=== PATIENT | female | born 1940 | race Caucasian/White ===

== ENCOUNTER 2023-10-08 12:35 | Observation (INO) ==
[2023-10-08 13:22] LABS: ABS Eosinophils 0.1 10^3/uL (0.0-0.5); ABS Lymphocytes 0.6 10^3/uL (1.0-4.8); ABS Monocytes 0.4 10^3/uL (0.0-0.9); ABS Neutrophils 6.5 10^3/uL (1.5-7.6); ABS Nucleated RBC 0.01 10^3/ul; Eosinophil % 1.9 %; Hematocrit 38.1 % (35-45); Hemoglobin 12.9 g/dL (11.5-14.3); Lymphocyte % 8.2 %; Mean Corpuscular Hemoglobin 30.7 pg (27-33); Mean Corpuscular Hgb Conc 33.9 g/dL (31-36); Mean Corpuscular Volume 90.8 fL (80-97); Mean Platelet Volume 7.2 fL (7.5-11.2); Nucleated Red Blood Cells % 0.1 %/100WBC (0.0-0.8); Platelet Count 320 10^3/uL (150-450); Red Cell Distribution Width 13.3 % (12-17); White Blood Count 7.7 10^3/uL (3.8-11.8)
[2023-10-08 13:39] LABS: Albumin 4.1 g/dL (3.2-5.2); Albumin/Globulin Ratio 1.2 (1-3); Calcium 9.7 mg/dL (8.6-10.3); Creatinine, Serum 0.78 mg/dL (0.51-0.95); Globulin 3.3 g/dL (2-4); Magnesium 1.8 mg/dL (1.9-2.7); Potassium 4.2 mmol/L (3.5-5.0); Total Bilirubin 0.4 mg/dL (0.2-1.0); Total Protein 7.4 g/dL (6.4-8.9); eGFR CKD-EPI 74.8 (>60)
[2023-10-08] MEDS: NS 0.9% 500 ml BAG 500 ML IV ONE (14:32)
[2023-10-08 14:59] LABS: High Sensitivity Troponin 1 Hr 11 pg/mL (<15)
[2023-10-08] MEDS: Iohexol 350 (CONTRAST) 500 ML MDV IV ONE (14:59)
[2023-10-08] MEDS: Albuterol/Ipratropium NEB.SOL (2.5/0.5 MG) 3 ML NEB.SOLN INH ONE ×2 (16:14→17:53)
[2023-10-08] MEDS: methylPREDNISolone SOD SUCC 125 mg 2 ML VIAL IV ONE (17:48)
[2023-10-08] MEDS: NS 0.9% 1000 ml BAG 1,000 ML IV ONE (17:49)
[2023-10-08] MEDS: Enoxaparin 40 MG/0.4 ML SYR SUBCUT SCH (20:08)
[2023-10-08] MEDS: Senna TAB 8.6 mg TAB PO SCH (20:08)
[2023-10-08] MEDS ORDERED: AZELASTINE INTRANASAL PRN (20:24)
[2023-10-08] MEDS: Magnesium Sulfate 2 gm BAG 2 GM/50 ML BAG IVPB ONE (20:56)
[2023-10-08 21:06] LABS: C Reactive Protein 10.53 mg/L (<8.01)
[2023-10-08] MEDS: Furosemide 20 mg/2 ml IV VIAL IV SLOW PU ONE (21:52)
[2023-10-08] MEDS: Multivitamins/Mins AREDS2 (NF) CAP PO SCH (22:12)
[2023-10-08 23:01] LABS: Ferritin 423.4 ng/mL (11-307)
[2023-10-09] MEDS: dilTIAZem 30 MG TAB PO SCH (02:31)
[2023-10-09 06:02] LABS: ABS Lymphocytes 0.3 10^3/uL (1.0-4.8); ABS Neutrophils 2.7 10^3/uL (1.5-7.6); Hematocrit 35.4 % (35-45); Lymphocyte % 8.9 %; Mean Corpuscular Hemoglobin 30.5 pg (27-33); Mean Corpuscular Volume 89.8 fL (80-97); Mean Platelet Volume 7.1 fL (7.5-11.2); Platelet Count 247 10^3/uL (150-450); Red Blood Count 3.94 10^6/uL (3.63-4.92); Red Cell Distribution Width 13.6 % (12-17)
[2023-10-09 06:22] LABS: Albumin 3.8 g/dL (3.2-5.2); Albumin/Globulin Ratio 1.3 (1-3); C Reactive Protein 8.69 mg/L (<8.01); Calcium 9.4 mg/dL (8.6-10.3); Creatinine, Serum 0.72 mg/dL (0.51-0.95); Magnesium 2.1 mg/dL (1.9-2.7); Potassium 4.5 mmol/L (3.5-5.0); Total Bilirubin 0.4 mg/dL (0.2-1.0); Total Protein 6.8 g/dL (6.4-8.9); eGFR CKD-EPI 82.4 (>60)
[2023-10-09 06:36] LABS: TSH Ultra Thyroid Stim Horm 0.43 mcIU/mL (0.34-5.60)
[2023-10-09] MEDS ORDERED: Sulfur Hexaflouride MICROSPHR 25 MG VIAL ONE (08:19)
[2023-10-09] MEDS: Fluticasone NASAL SPRAY 50MCG 16 gm SPRAY BTL BOTH NARES SCH (11:00)
[2023-10-09] MEDS: Polyethylene Glycol 3350 17 GM PACKET PO SCH (11:06)
[2023-10-09] MEDS: Levalbuterol 0.63MG/3ML NEB UNIT OF USE INH ONE (14:33)
[2023-10-09] MEDS: Levalbuterol 1.25MG/0.5ML NEB.SOL INH ONE (14:51)
[2023-10-09] MEDS: Furosemide 20 mg/2 ml IV VIAL IV SLOW PU ONE (16:19)
[2023-10-09] MEDS ORDERED: Levalbuterol 1.25MG/0.5ML NEB.SOL INH PRN (17:32)
[2023-10-09] MEDS: Multivitamins/Mins AREDS2 (NF) CAP PO SCH (20:36)
[2023-10-09] MEDS ORDERED: dilTIAZem 30 MG TAB PO SCH (22:30)
[2023-10-10 06:37] LABS: Hematocrit 34.4 % (35-45); Hemoglobin 11.6 g/dL (11.5-14.3); Mean Corpuscular Hemoglobin 30.5 pg (27-33); Mean Corpuscular Hgb Conc 33.7 g/dL (31-36); Mean Corpuscular Volume 90.6 fL (80-97); Mean Platelet Volume 7.4 fL (7.5-11.2); Platelet Count 236 10^3/uL (150-450); Red Cell Distribution Width 14.1 % (12-17); White Blood Count 9.6 10^3/uL (3.8-11.8)
[2023-10-10 06:53] LABS: Calcium 9.8 mg/dL (8.6-10.3); Creatinine, Serum 0.8 mg/dL (0.51-0.95); Magnesium 2.1 mg/dL (1.9-2.7); Potassium 4.8 mmol/L (3.5-5.0); eGFR CKD-EPI 72.6 (>60)
[2023-10-10 14:41] VITALS: BP 115/69
[2023-10-10] MEDS: Levalbuterol HFA INHALER MDI INH SCH (14:46)
[2023-10-10] MEDS: SPIRIVA Respimat (tiotropium) 2.5 mcg/inh Inhaler INH SCH (14:46)
[2023-10-10] MEDS ORDERED: SPIRIVA Respimat (tiotropium) 2.5 mcg/inh Inhaler INH SCH (15:00)
[2023-10-10] MEDS ORDERED: Levalbuterol HFA INHALER MDI INH SCH (15:00)
[2023-10-10] MEDS: Empagliflozin 25 MG TAB PO SCH (16:31)
== END 2023-10-10 17:55 | disposition home or self-care (01) ==
LOC: EDHOLD 12:35 → ED 12:35 → SUATTDRO 19:01 → MEDTELE 19:36
PROVIDERS: ADMIT Internal Medicine; ATTEND Hospitalist